=== PATIENT | female | born 1990 | race African-American/Black ===

== ENCOUNTER 2016-12-28 07:51 | Emergency (ER) | payer OTHER ==
[~2016-12-28 07:51] MED LIST: ALBUTEROL17 GM INH; ALLERGY RELIEF10 M3 PO; AMOXIL500 MG PO; BACTRIM DS TABL1 TA1 PO; CARAFATE1 G PO; CLARITIN10 MG; FLEXERIL10 MG PO; FLOVENT HFA12 GM; LORTAB 5/500 TA1 TA1 PO; LORTAB 5/500 TA1 TA2 PO; MEDROL PO; MEDROL4 MG/DOSE- PO; METROGEL55 GM VAG; NAPROSYN500 MG PO; NAPROXEN PO; NASONEX17 GM; NO MEDICATIONS; NO MEDICATIONS PO; NYSTATIN-TRIAMC15 G1 TOP; PANTOPRAZOLE SO40 MG PO; PEN-VEE K PO; PEPCID AC20 M2 PO; PHENERGAN PO; PHENERGAN PR; PHENERGAN SUPP25 MG PR; PHENERGAN25 MG PO; PRENATAL MULITV1 TAB PO; PRILOSEC PO; PROTONIX PO; SINGULAIR; SYMBICORT INH; TESSALON200 MG PO; VOLTAREN50 MG PO; ZITHROMAX PO; ZITHROMAX1 G/PKT PO; ZOFRAN ODT4 MG PO; ZOFRAN ODT4 MG/UDTAB PO
[2016-12-28 08:17] LABS: BASOPHIL% 0.4 % (0-2.5); HEMATOCRIT 47.7 % (35.0-45.0); LYMPHOCYTE% 10.9 % (17.0-45.0); MEAN CELL VOLUME 90.3 FL (83-96); MEAN CORPUSCULAR HEMOGLOBIN 30.3 PG (28-34); MEAN CORPUSCULAR HGB CONC 33.5 g/dL (30-36); MONOCYTE# 0.7 X10e3 (0-1.0); MONOCYTE% 8.1 % (3.0-12.0); NEUTROPHIL# 7.4 X10e3 (1.5-7.1); NEUTROPHIL% 80.6 % (40-75); PLATELET COUNT 243 X10e3 (140-420); RED BLOOD COUNT 5.28 X10e (3.90-5.30); RED CELL DISTRIBUTION WIDTH 14.6 % (11.0-15.5); WHITE BLOOD COUNT 9.2 X10e3 (4.0-10.5)
[2016-12-28 08:22] LABS: DIFF IND NO
[2016-12-28 08:41] LABS: ALBUMIN SERUM 5.5 g/dL (3.5-5.0); BILIRUBIN, DIRECT 0.2 mg/dL (0.0-0.2); BILIRUBIN,INDIRECT 1.4 mg/dL (0.0-0.9); BILIRUBIN,TOTAL 1.6 mg/dL (0.2-2.0); GLOM FILT RATE Estimated 90.7 mL/min (>60); POTASSIUM 3.3 mmol/L (3.5-5.1); PROTEIN TOTAL SERUM 9.4 g/dL (6.0-8.3)
[2016-12-28 09:49] LABS: URINE SOURCE CATH
[2016-12-28 10:00] LABS: URINE APPEARANCE CLOUDY; URINE BILIRUBIN NEG (NEG); URINE BLOOD 2+ (NEG); URINE COLOR YELLOW; URINE GLUCOSE NEG (NEG); URINE KETONE 1+ (NEG); URINE LEUKOCYTE ESTERASE NEG (NEG); URINE NITRATE NEG (NEG); URINE PROTEIN 3+ (NEG); URINE SPECIFIC GRAVITY 1.032 (1.003-1.035)
[2016-12-28 10:03] LABS: CULTURE INDICATED? YES; URBCS1 AUWI 0-2 /[HPF] (0-2); URINE BACTERIA AUWI NEG (NEGATIVE); URINE SQUAMOUS EPITHELIAL CELL MOD /[HPF]
[2016-12-28 10:14] LABS: AMPHETAMINE NEG (NEG); BARBITURATES NEG (NEG); BENZODIAZEPINES NEG (NEG); COCAINE NEG (NEG); MARIJUANA POS (NEG); OPIATES NEG (NEG); TRICYCLIC ANTIDEPRESSANTS NEG (NEG); U METHADONE NEG (NEG)
[2017-06-02] MEDS ORDERED: NO MEDICATIONS (14:38)
== END 2016-12-28 10:50 | disposition home or self-care (01) ==
LOC: CED 07:51
PROVIDERS: Emergency Medicine
DX: R10.84 Generalized abdominal pain (principal); R11.2 Nausea with vomiting, unspecified; I10 Essential (primary) hypertension; F17.210 Nicotine dependence, cigarettes, uncomplicated; F12.10 Cannabis abuse, uncomplicated; Z90.49 Acquired absence of other specified parts of digestive tract
CPT/HCPCS: 36415; 80048; 80076; 80307; 81003; 83690; 84703; 85025; 87086; 96361; 96374; 96375; 99284; J1885; J2405

== ENCOUNTER 2017-02-06 19:41 | Emergency (ER) | payer OTHER ==
[2017-02-06 20:31] LABS: BASOPHIL# 0.1 X10e3 (0-0.3); BASOPHIL% 0.6 % (0-2.5); HEMATOCRIT 41.3 % (35.0-45.0); HEMOGLOBIN 13.7 gm/dL (12.0-16.0); LYMPHOCYTE# 1.9 X10e3 (1.0-3.5); LYMPHOCYTE% 19.1 % (17.0-45.0); MEAN CELL VOLUME 90.9 FL (83-96); MEAN CORPUSCULAR HEMOGLOBIN 30.2 PG (28-34); MEAN CORPUSCULAR HGB CONC 33.2 g/dL (30-36); MEAN PLATELET VOLUME 8.6 FL (6.5-11.5); MONOCYTE# 0.6 X10e3 (0-1.0); MONOCYTE% 5.7 % (3.0-12.0); NEUTROPHIL# 7.4 X10e3 (1.5-7.1); NEUTROPHIL% 74.6 % (40-75); PLATELET COUNT 223 X10e3 (140-420); RED BLOOD COUNT 4.55 X10e (3.90-5.30); RED CELL DISTRIBUTION WIDTH 14.1 % (11.0-15.5); WHITE BLOOD COUNT 9.9 X10e3 (4.0-10.5)
[2017-02-06 20:32] LABS: DIFF IND NO
[2017-02-06 21:04] LABS: ALBUMIN SERUM 5.1 g/dL (3.5-5.0); BILIRUBIN, DIRECT 0.2 mg/dL (0.0-0.2); BILIRUBIN,INDIRECT 0.9 mg/dL (0.0-0.9); BILIRUBIN,TOTAL 1.1 mg/dL (0.2-2.0); BUN/CREATININE RATIO 12.85; CREATININE SERUM 0.7 mg/dL (0.6-1.4); GLOM FILT RATE Estimated 139.6 mL/min (>60); POTASSIUM 3.1 mmol/L (3.5-5.1); PROTEIN TOTAL SERUM 8.4 g/dL (6.0-8.3)
[2017-02-07] MEDS ORDERED: ZOFRAN ODT4 MG PO (21:53)
[2017-02-08] MEDS ORDERED: MOTION RELIEF25 MG PO (15:58)
[2017-06-02] MEDS ORDERED: NO MEDICATIONS (14:38)
[2017-06-03] MEDS ORDERED: PHENERGAN12.5 MG PO (14:12)
[2017-06-03] MEDS ORDERED: ZOFRAN PO (14:12)
[2017-06-03] MEDS ORDERED: OMEPRAZOLE20 M2 PO (14:13)
[2017-06-03] MEDS ORDERED: ZESTRIL2.5 MG PO (14:15)
== END 2017-02-07 05:41 | disposition home or self-care (01) ==
LOC: CED 19:41
DX: R10.9 Unspecified abdominal pain (principal); R11.11 Vomiting without nausea; R19.7 Diarrhea, unspecified; I10 Essential (primary) hypertension; F17.200 Nicotine dependence, unspecified, uncomplicated
CPT/HCPCS: 36415; 80048; 80076; 83690; 85025; 96361; 96365; 96375; 99284; G0480; J0696; J0780; J1885; J2550

== ENCOUNTER 2017-02-07 18:27 | Observation (INO) | payer OTHER ==
--- NOTE | ~2017-02-07 | CT71 ---
[facility] A Service of [facility] RADIOLOGY TEXT RESULTS PATIENT: MCDERMOTT LOCATION: [facility] 573-01 : [birth year] UNIT #: [id number] AGE: [address]: Mandi Dhillon MD SEX: F ORDER DR: [id number] [facility] [address]. [place], [place] [address] [id number] I MR#: [id number] Acc #: [id number] NAME: MCDERMOTT : 1990 SEX: F STUDY DATE/TIME: 02/07/2017 22:12 UNIT: [facility] ROOM: [facility] STUDY DESCRIPTION: CT Head Wo Contrast Attending Physician: Mandi Dhillon M.D. Ordering Physician: Brent Baugh D.O. Primary Care Physician: No Primary Care Physician MEDICAL IMAGING REPORT This report is preliminary unless electronic signature is present EXAM CT head, noncontrast, 02/07/2017. HISTORY 26-year-old female in the ED complaining of 3-day history of dizziness with nausea and vomiting. Some abdomen pain. TECHNIQUE CT examination of the head was performed without IV contrast. This CT exam was performed with one or more of the following radiation dose reduction techniques: automatic exposure control, adjustment of mA and/or kV according to patient size, and iterative reconstruction. COMPARISON CT head 10/26/2016 FINDINGS The examination is negative. No evidence of intracranial hemorrhage, mass, mass effect, cerebral edema, hydrocephalus, or additional abnormality. No change since the prior study. IMPRESSION Negative head CT examination. No change since 10/26/2016. Dictated by... Berto Engle M.D. THIS IS AN ELECTRONICALLY VERIFIED REPORT Berto Engle M.D. at 02/08/2017 9:55 PM RGW/tmw [facility] A Service of [facility] RADIOLOGY TEXT RESULTS PATIENT: MCDERMOTT LOCATION: [facility] 573-01 : [birth year] UNIT #: [id number] AGE: [address]: Mandi Dhillon MD SEX: F ORDER DR: TD: 02/08/2017 09:28 JOB #: [id number] MEDICAL IMAGING REPORT Page 1 of 1 COPY
--- NOTE | ~2017-02-07 | CT4 ---
[facility] A Service of [facility] RADIOLOGY TEXT RESULTS PATIENT: MCDERMOTT LOCATION: [facility] 573-01 : 91 UNIT #: [id number] AGE: [address]: Mandi Dhillon MD SEX: F ORDER DR: [id number] [facility] [address]. [place], [place] [address] [id number] I MR#: [id number] Acc #: [id number] NAME: MCDERMOTT : 1990 SEX: F STUDY DATE/TIME: 02/07/2017 22:14 UNIT: [facility] ROOM: 3 STUDY DESCRIPTION: CT Abd and Pelv Wo Cont Attending Physician: Mandi Dhillon M.D. Ordering Physician: Brent Baugh D.O. Primary Care Physician: Primary Care Physician No MEDICAL IMAGING REPORT This report is preliminary unless electronic signature is present EXAM CT abdomen and pelvis, noncontrast, 02/07/2017 HISTORY 26-year-old female in the ED complaining of 3-day history of bilateral lower abdomen pain with nausea and vomiting. Dizziness. TECHNIQUE CT examination of the abdomen and pelvis was performed without oral or IV contrast, as ordered. This CT exam was performed with one or more of the following radiation dose reduction techniques: automatic exposure control, adjustment of mA and/or kV according to patient size, and iterative reconstruction. COMPARISON CT abdomen/pelvis, 07/16/2016 FINDINGS Abdomen: Cholecystectomy. Mild dilatation of the extrahepatic bile ducts to a diameter of about 10 mm with slightly prominent intrahepatic bile ducts. There was also mild diffuse prominence of the pancreatic duct. Correlate for laboratory evidence of biliary obstruction. Ampullary stenosis is a consideration. There was no convincing evidence of acute pancreatitis. Liver, pancreas, spleen and kidneys are otherwise negative. No visible nephrolithiasis or evidence of urinary obstruction. Small bowel and colon are normal in caliber and appearance, as imaged. The appendix is not identified on this exam. Small volume free pelvic fluid, likely physiologic. Uterus, adnexal regions, bladder and rectum are otherwise negative. No inguinal hernia. Limited lung base images are negative. IMPRESSION STS. [facility] A Service of [facility] RADIOLOGY TEXT RESULTS PATIENT: MCDERMOTT LOCATION: [facility] 573-01 : [birth year] UNIT #: [id number] AGE: [address]: Mandi Dhillon MD SEX: F ORDER DR: 1. Cholecystectomy. 2. Mild dilatation of the extrahepatic bile duct to about 10 mm with mild prominence of the intrahepatic bile ducts and pancreatic duct. The findings are nonspecific in a post cholecystectomy patient, but laboratory correlation is recommended to exclude evidence of biliary obstruction or pancreatitis. Ampullary stenosis is a consideration. 3. Small amount of free pelvic fluid, likely physiologic. 4. The appendix is not identified. Dictated by... Breto Engle M.D. THIS IS AN ELECTRONICALLY VERIFIED REPORT Berto Engle M.D. at 02/08/2017 9:55 PM AJAY/argenis TD: 02/08/2017 09:33 JOB #: [id number] MEDICAL IMAGING REPORT Page 1 of 1 COPY
--- NOTE | ~2017-02-07 | HP ---
Unit #: [id number] #: [id number] Patient: MCDERMOTT [id number] [address] [address] [id number] I MR#: [id number] NAME: MCDERMOTT ROOM: 573 Age: 26 Sex: F Admission Date: 02/07/2017 : 1990 Attending Physician: Freddy Madrigal M.D. Primary Care Physician: No Primary Care Physician HISTORY AND PHYSICAL CHIEF COMPLAINT Intractable nausea and vomiting with accelerated blood pressure. HISTORY OF PRESENT ILLNESS This is a 26-year-old female with a past medical history of asthma, gastritis, intractable nausea and vomiting. She presented to the emergency room yesterday with a chief complaint of nausea and vomiting and eventually she was discharged home. She came back again with nausea, vomiting and diffuse upper abdominal pain. She was found on workup to have a potassium level of 3, troponin 0.13. Initially her blood pressure was 214/143, which improved to 114/86, but in view of increased troponin she is going to be admitted overnight to rule out acute coronary syndrome and for intractable nausea and vomiting. She says this has been going on since yesterday. She threw up many times. She is complaining of diffuse upper abdominal pain. No blood in the stool. She complained of some dizziness, but denies any other complaint. PAST MEDICAL HISTORY 1. History of intractable nausea and vomiting in the past, requiring admission in 10/2016. Also she had admission in 08/2016. At that time she had a workup with EGD that showed esophagitis, gastritis. 2. History of benign supraventricular tachycardia and PVCs noted on heart monitor in 2014. She had echocardiogram also in 01/2015 that showed ejection fraction of 55%. 3. History of asthma. 4. Marijuana use. 5. History of cholecystectomy. 6. D and C. 7. . 8. Surgery for ectopic . SOCIAL HISTORY The patient lives with her mother and her child. She smokes a half pack daily. She uses marijuana. She says that she used yesterday. She denies other illicit drug use. FAMILY HISTORY Hypertension. ALLERGIES No known drug allergies. HOME MEDICATIONS Zofran. Unit #: [id number] #: [id number] Patient: MCDERMOTT REVIEW OF SYSTEMS Negative except for history of present illness. PHYSICAL EXAMINATION GENERAL: Young female lying in the bed comfortably. Currently not in any distress. She is alert, awake, oriented times three. VITALS: Temperature 98.4, heart rate 67, respiratory rate 22, blood pressure currently right now 140/86. HEENT: Pupils equal and reactive to light and accommodation. Head is normocephalic, atraumatic. NECK: Supple. No jugular venous distension. LUNGS: Clear to auscultation bilaterally. No rhonchi. No wheezing. HEART: S1 and S2. Regular rate and rhythm. ABDOMEN: Soft, nontender and nondistended. Bowel sounds positive. EXTREMITIES: Inspection normal. No cyanosis, clubbing or edema. NEUROLOGIC: No focal neurologic deficits. DIAGNOSTIC STUDIES IMAGING: CT scan of the abdomen is pending at the time of dictation. CT of the head is pending. LABORATORY: (1) test is negative. Troponin 0.13. chemistry, sodium 137, potassium 3, chloride 100, glucose 121, BUN 19, creatinine 1.4. LFTs within normal limits. Lipase 22, total protein 9.4. CBC, white blood cell count 11, hemoglobin 16, hematocrit 49, platelets 269. ASSESSMENT/PLAN 1. Intractable nausea and vomiting. 2. Upper abdominal pain with history of gastritis. Placed on IV Protonix. 3. Hypokalemia. Replaced. 4. Accelerated blood pressure with a history of accelerated blood pressure in the past, but no history of hypertension. Will monitor. 5. Mild increased troponin. Rule out acute coronary syndrome. Will get cardiac enzymes times two. Ask cardiology to evaluate. 6. History of peptic ulcer disease, status post EGD in 08/2016 that showed mild esophagitis, gastritis. 7. History of asthma. 8. Marijuana abuse. 9. DVT prophylaxis. Will place the patient on SCDs. Dictated by Jeremy Leone TD: 02/08/2017 06:56 JOB #: [id number] Unit #: [id number] #: [id number] Patient: MCDERMOTT HISTORY AND PHYSICAL Page 1 of 1 X X HISTORY AND PHYSICAL
--- NOTE | ~2017-02-07 | DS ---
Unit #: [id number] #: [id number] Patient: BELTRAN [id number] [address] [address] [id number] I MR#: [id number] NAME: BELTRAN ROOM: 573 Age: 27 Sex: F Admission Date: 02/07/2017 : 1990 Discharge Date: 02/08/2017 Attending Physician: Mandi Dhillon M.D. Primary Care Physician: No Primary Care Physician DISCHARGE SUMMARY PRINCIPAL DIAGNOSES 1. Nausea and vomiting, likely stress-induced. 2. Benign paroxysmal positional vertigo. 3. Acute kidney injury, prerenal. 4. Hypokalemia. 5. Non-anion gap metabolic acidosis. 6. Elevated troponin, nonspecific. 7. Tobaccoism. 8. Marijuana use. 9. Opiate use. 10. Asthma. CONSULTANTS Dr. Saldivar, cardiology. DIAGNOSTIC STUDIES IMAGING: CT of the head without contrast on February 07, 2017, which was normal. CT of the abdomen and pelvis without contrast on February 07, 2017 with dilatation of the extrahepatic bile duct with mild prominence of intrahepatic bile ducts. Free pelvic fluid, physiologic, noted. CLINICAL HISTORY AND HOSPITAL COURSE Beltran is a 26-year-old female who presented to the emergency department with repeated nausea and vomiting. Please refer to H and P for further details. CT scan of the abdomen was unremarkable, as was blood work; however, the patient was having recurrent nausea and vomiting and placed in observation. The patient was maintained on IV fluids overnight. Creatinine did increase a bit from normal to 1.6. However, she is now tolerating a diet, and I anticipate that creatinine will normalize with appropriate fluid intake. I think creatinine can be followed up as an outpatient. The patient did have a mildly elevated troponin of 0.13 in the ER. Cardiology was consulted; however, this has normalized. There are no plans for further workup. As noted above, the patient does have a mild acute kidney injury, but I think this will improve with oral intake. Will arrange for a BMP next week as an outpatient. The patient was also complaining of some vertiginous symptoms with turning Unit #: [id number] #: [id number] Patient: BELTRAN of the head. I will provide her with some meclizine to take on a p.r.n. basis. DISCHARGE CONDITION Stable. DISCHARGE STATUS Discharge to home. DISCHARGE MEDICATIONS 1. Meclizine 25 mg p.o. q.8 hours p.r.n. dizziness. 2. Zofran 4 mg p.o. q.4 hours p.r.n. nausea. DISCHARGE INSTRUCTIONS Patient was instructed to follow a regular diet. She can increase her activity as tolerated. FOLLOW-UP 1. Patient can follow up with her primary care provider in approximately 2 weeks. 2. I will arrange for her to have a BMP later this week with results faxed to my office. Dictated by... Mandi Dhillon M.D. [place]/kye TD: 02/10/2017 09:10 JOB #: [id number] DISCHARGE SUMMARY Page 1 of 1 X Mandi Dhillon MD X DISCHARGE SUMMARY
--- NOTE | ~2017-02-07 | EKG ---
PATIENT: VICTOR UNIT #: [id number] Ventricular Rate: 60 BPM Atrial Rate: 60 BPM P-R Interval: 140 ms QRS Duration: 84 ms Q-T Interval: 460 ms QTC Calculation(Bezet): 460 ms P Aurora: 16 degrees Calculated R Aurora: 17 degrees Calculated T Aurora: 32 degrees Diagnosis Line: Normal sinus rhythm Diagnosis Line: Nonspecific T wave abnormality Diagnosis Line: Abnormal ECG Diagnosis Line: When compared with ECG of 27-OCT-2016 06:04, Diagnosis Line: Sinus rhythm has replaced Ectopic atrial rhythm Diagnosis Line: QT has shortened Diagnosis Line: Confirmed by KRISTY KIRAN MD ([id number]) on Diagnosis Line: 02/08/2017 10:15:32 PM INTERPRETING MD: TAMMY
--- NOTE | ~2017-02-07 | CO ---
Unit #: [id number] #: [id number] Patient: MCDERMOTT [id number] [address] [address] [id number] I MR#: [id number] NAME: MCDERMOTT ROOM: 57 Age: 26 Sex: F Admission Date: 02/07/2017 : 1990 Attending Physician: Mandi Dhillon M.D. Primary Care Physician: No Primary Care Physician Consultation Date: 02/08/2017 CONSULTATION REPORT REASON FOR CONSULTATION Mild elevated troponin. 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 She denies ever having a myocardial infarction or cardiac catheterization in the past. Apparently she did have an echo in 01/2015 which showed an ejection fraction of 55%. Also, in 2014 she had a Holter monitor done which showed benign SVT and PVCs. Additional past medical history includes peptic ulcer disease, intractable nausea and vomiting and asthma. She has had a cholecystectomy, D and C and a in the past. In 08/2016 she did have an EGD done, which showed esophagitis and gastritis. The patient also endorses marijuana use and tobaccoism. The patient initially presented to the emergency department yesterday with a chief complaint of nausea and vomiting and was eventually discharged home. She came back again with intractable nausea and vomiting, but this time had diffuse upper quadrant pain that she described as cramping. She denies any sick contacts. She denies fever. She does endorse some chills. She denies any chest pain or palpitations. Initially her blood pressure was 214/143, which did improve to 114/86. Her point of care troponin was found to be 0.03. The patient was admitted for further workup. The patient's EKG shows sinus rhythm with T wave inversion in the septal leads. This morning her troponin is less than 0.03. The patient now does have increased creatinine at 1.6 and her potassium is 3.3. The is no fever. PAST MEDICAL HISTORY 1. Two-dimensional echo 01/2015 showed an ejection fraction of 55%. 2. Holter monitor from 2014 shows benign SVT and PVCs. 3. Peptic ulcer disease. 4. History of intractable nausea and vomiting. 5. EGD in 2016 which showed gastritis and esophagitis. 6. Asthma. 7. Marijuana use. 8. Tobaccoism. PAST SURGICAL HISTORY 1. Cholecystectomy. 2. D and C. 3. . SOCIAL HISTORY The patient endorses that she lives with her mother and her child. She Unit #: [id number] #: [id number] Patient: MCDERMOTT smokes about a half pack of cigarettes daily. She does occasionally use marijuana. She denies any other illicit drug use. FAMILY HISTORY The patient denies any family history of coronary artery disease. ALLERGIES No known drug allergies. HOME MEDICATIONS Zofran 4 mg p.o. q.4 h. p.r.n. nausea. REVIEW OF SYSTEMS A 10-point review of systems has been done and is otherwise negative other than as indicated in the history of present illness. PHYSICAL EXAMINATION GENERAL: The patient is a 26-year-old female who is awake, alert and in no acute distress. VITALS: Temperature 98.7, heart rate 56, respiratory rate 18, blood pressure 87/43. She is oxygenating 96% on room air. HEENT: Head is atraumatic, normocephalic. Pupils equal, round and reactive. Extraocular movements are intact. No drainage from ears or nares. NECK: Supple. Trachea midline. LUNGS: Clear to auscultation bilaterally. No wheezes, rales or rhonchi. HEART: S1 and S2. Regular rate and rhythm. No murmurs, rubs or gallops appreciated. ABDOMEN: Soft. Tender in the upper quadrants. Bowel sounds are positive in all four quadrants. No hepatosplenomegaly is appreciated. SKIN: Appears to be warm, dry and intact. EXTREMITIES: No clubbing, edema or cyanosis. NEUROLOGIC: The patient is alert and oriented times four. She is pleasant and conversant. Cranial nerves II through XII intact. No focal deficits. DIAGNOSTIC STUDIES LABORATORY: White blood cell count 10.3, hemoglobin 14.2, hematocrit 42.4, platelets 222. Sodium 136, potassium 3.3, chloride 104, CO2 21, BUN 28, creatinine 1.6, glucose 99, magnesium 2.1. Urine drug screen is positive for opiates and marijuana. Beta HCG is negative. Mmbaz-du-[id number] troponin was 0.13, now troponin is less than 0.03. CARDIOVASCULAR: EKG shows normal sinus rhythm with a rate of 60 beats per minute with T wave inversion in the septal leads. ASSESSMENT 1. Intractable abdominal pain with nausea and vomiting. 2. Mild elevated [id number]-[id number] troponin, now normal. 3. History of peptic ulcer disease, status post EGD in 08/2016. 4. Asthma. 5. Marijuana use. 6. Tobaccoism. 7. Hypokalemia with ANDREA. 8. History of gastritis and esophagitis. PLAN At this time will add a TSH, lipid panel, hemoglobin A1c to this morning's labs. Will have Dr. Saldivar to see to determine if any more cardiac Unit #: [id number] #: [id number] Patient: MCDERMOTT testing is necessary. The patient adamantly denies chest pain, palpitations or dizziness. Dictated by... Rosaura Flowers A.P.R.N. for Seng Saldivar M.D. AM/leda TD: 02/08/2017 09:05 JOB #: [id number] CC: [facility] CONSULTATION REPORT Page 1 of 1 X Rosaura Flowers APRN CONSULTATION REPORT
[2017-02-07 19:21] LABS: BASOPHIL% 0.3 % (0-2.5); HEMATOCRIT 49.1 % (35.0-45.0); LYMPHOCYTE# 1.7 X10e3 (1.0-3.5); LYMPHOCYTE% 15.3 % (17.0-45.0); MEAN CELL VOLUME 90.9 FL (83-96); MEAN CORPUSCULAR HEMOGLOBIN 29.9 PG (28-34); MEAN CORPUSCULAR HGB CONC 32.9 g/dL (30-36); MEAN PLATELET VOLUME 9.3 FL (6.5-11.5); MONOCYTE# 1.2 X10e3 (0-1.0); MONOCYTE% 10.9 % (3.0-12.0); NEUTROPHIL# 8.4 X10e3 (1.5-7.1); NEUTROPHIL% 73.5 % (40-75); PLATELET COUNT 269 X10e3 (140-420); RED CELL DISTRIBUTION WIDTH 13.9 % (11.0-15.5); WHITE BLOOD COUNT 11.4 X10e3 (4.0-10.5)
[2017-02-07 19:26] LABS: DIFF IND NO; HEMOGLOBIN 16.1 gm/dL (12.0-16.0)
[2017-02-07 19:50] LABS: ALBUMIN SERUM 5.8 g/dL (3.5-5.0); BILIRUBIN, DIRECT 0.2 mg/dL (0.0-0.2); BILIRUBIN,INDIRECT 2.1 mg/dL (0.0-0.9); BILIRUBIN,TOTAL 2.3 mg/dL (0.2-2.0); BUN/CREATININE RATIO 13.57; CALCIUM SERUM 9.9 mg/dL (8.4-10.2); CREATININE SERUM 1.4 mg/dL (0.6-1.4); GLOM FILT RATE Estimated 60.4 mL/min (>60); PROTEIN TOTAL SERUM 9.4 g/dL (6.0-8.3)
[2017-02-07 21:19] LABS: POC - CKMB <1.0 ng/mL (0.0-7.9); POC - TROPONIN 0.13 ng/mL (<=0.05)
[2017-02-07] MEDS ORDERED: ZOFRAN ODT4 MG PO (21:53)
[2017-02-07 22:54] LABS: URINE SOURCE CLEAN CATCH
[2017-02-07 23:04] LABS: URINE APPEARANCE CLOUDY; URINE BILIRUBIN NEG (NEG); URINE BLOOD TRACE (NEG); URINE COLOR YELLOW; URINE GLUCOSE NEG (NEG); URINE KETONE 1+ (NEG); URINE LEUKOCYTE ESTERASE NEG (NEG); URINE NITRATE NEG (NEG); URINE SPECIFIC GRAVITY 1.027 (1.003-1.035)
[2017-02-07 23:08] LABS: CULTURE INDICATED? YES; URBCS1 AUWI 0-2 /[HPF] (0-2); URINE BACTERIA AUWI 1+ (NEGATIVE); URINE PROTEIN 1+ (NEG); URINE SQUAMOUS EPITHELIAL CELL FEW /[HPF]
[2017-02-07 23:30] LABS: AMPHETAMINE NEG (NEG); BARBITURATES NEG (NEG); BENZODIAZEPINES NEG (NEG); COCAINE NEG (NEG); MARIJUANA POS (NEG); OPIATES POS (NEG); TRICYCLIC ANTIDEPRESSANTS NEG (NEG); U METHADONE NEG (NEG)
[2017-02-08 03:53] LABS: BASOPHIL% 0.5 % (0-2.5); EOSINOPHIL% 0.1 % (0.0-7.0); HEMATOCRIT 42.4 % (35.0-45.0); HEMOGLOBIN 14.2 gm/dL (12.0-16.0); LYMPHOCYTE% 28.6 % (17.0-45.0); MEAN CELL VOLUME 90.4 FL (83-96); MEAN CORPUSCULAR HEMOGLOBIN 30.2 PG (28-34); MEAN CORPUSCULAR HGB CONC 33.5 g/dL (30-36); MEAN PLATELET VOLUME 8.6 FL (6.5-11.5); MONOCYTE# 1.2 X10e3 (0-1.0); MONOCYTE% 11.2 % (3.0-12.0); NEUTROPHIL# 6.2 X10e3 (1.5-7.1); NEUTROPHIL% 59.6 % (40-75); PLATELET COUNT 222 X10e3 (140-420); RED BLOOD COUNT 4.69 X10e (3.90-5.30); RED CELL DISTRIBUTION WIDTH 13.9 % (11.0-15.5); WHITE BLOOD COUNT 10.3 X10e3 (4.0-10.5)
[2017-02-08 03:54] LABS: DIFF IND NO
[2017-02-08 04:17] LABS: BUN/CREATININE RATIO 17.5; CREATININE SERUM 1.6 mg/dL (0.6-1.4); GLOM FILT RATE Estimated 51.4 mL/min (>60); MAGNESIUM 2.1 mg/dL (1.6-3.0); POTASSIUM 3.3 mmol/L (3.5-5.1)
[2017-02-08 04:38] LABS: %MB 0.8 % (0.0-4.0); MB 0.7 ng/ml
[2017-02-08 09:34] LABS: %MB 0.7 % (0.0-4.0); MB 0.6 ng/ml
[2017-02-08 10:03] LABS: CHOLESTEROL 187 mg/dL (0-200); HDL CHOLESTEROL 42 mg/dL (35-95); LDL CHOLESTEROL 129 mg/dL ([, -130]); LDL/HDL RATIO 3 RATIO (0-4); TRIGLYCERIDES 81 mg/dL (10-160)
[2017-02-08] MEDS ORDERED: MOTION RELIEF25 MG PO (15:58)
[2017-06-02] MEDS ORDERED: NO MEDICATIONS (14:38)
[2017-06-03] MEDS ORDERED: PHENERGAN12.5 MG PO (14:12)
[2017-06-03] MEDS ORDERED: ZOFRAN PO (14:12)
[2017-06-03] MEDS ORDERED: OMEPRAZOLE20 M2 PO (14:13)
[2017-06-03] MEDS ORDERED: ZESTRIL2.5 MG PO (14:15)
== END 2017-02-08 17:42 | disposition home or self-care (01) ==
LOC: CED 18:27 → CEDOF 22:30 → C5C 22:30 → CEDOF 23:09 → CED 23:09 → C5C 02-08 01:46 → CEDOF 02-08 01:46 → C5C 02-08 07:15
PROVIDERS: Emergency Medicine; Nurse Practitioner
DX: R11.2 Nausea with vomiting, unspecified (principal); H81.10 Benign paroxysmal vertigo, unspecified ear; N17.9 Acute kidney failure, unspecified; R10.10 Upper abdominal pain, unspecified; R79.89 Other specified abnormal findings of blood chemistry; Z87.11 Personal history of peptic ulcer disease; J45.909 Unspecified asthma, uncomplicated; F17.200 Nicotine dependence, unspecified, uncomplicated; F12.90 Cannabis use, unspecified, uncomplicated; F11.90 Opioid use, unspecified, uncomplicated; Z82.49 Family history of ischemic heart disease and other diseases of the circulatory system; Z90.49 Acquired absence of other specified parts of digestive tract
CPT/HCPCS: 36415; 70450; 74176; 80048; 80061; 80076; 80307; 81003; 82550; 82553; 83036; 83690; 83735; 84132; 84443; 84484; 84703; 85025; 87086; 93005; 96361; 96374; 96375; 99285; C9113; G0378; J2270; J2550